=== PATIENT | male | born 1955 | race Caucasian/White ===

== ENCOUNTER 2018-05-23 09:04 | Inpatient (IN) | payer OTHER ==
[~2018-05-23] VITALS: Ht 182.9 cm; Wt 184.1 kg
[~2018-05-23 09:04] MED LIST: HYDROCODON-ACE1 EA15 ORAL; PROTONIX40 M2 GT
[2018-05-23] MEDS ORDERED: BIKTARVY 50-201 EACH PO (15:25)
[2018-05-23] MEDS ORDERED: PROTONIX20 MG ORAL (15:25)
[2018-05-23] MEDS ORDERED: CITALOPRAM HBR40 M1 ORAL (15:25)
[2018-05-23 15:29] LABS: BASOPHILS % (AUTO) 1.3 % (0.0-2.0); EOSINOPHILS % (AUTO) 1.4 % (0.0-3.0); HEMATOCRIT 41.6 % (42.0-52.0); HEMOGLOBIN 13.9 G/DL (14.2-18.0); LYMPHOCYTES % (AUTO) 34.2 % (20.0-45.0); MEAN CORPUSCULAR VOLUME 79 FL (80-99); MONOCYTES % (AUTO) 7.7 % (1.0-10.0); NEUTROPHILS % (AUTO) 55.4 % (45.0-75.0); PLATELET COUNT 199 K/UL (150-450); RED BLOOD COUNT 5.26 M/UL (4.70-6.10); RED CELL DISTRIBUTION WIDTH 13.5 % (11.6-14.8); WHITE BLOOD COUNT 5.2 K/UL (4.8-10.8)
--- NOTE | 2018-05-23 16:17 | History & Physical ---
History and Physical History & Physicial Full H&P dictated #[id number] 62 yo male electively admitted for participation in clinical trial -[id number]. PMH: HIV 2007, started on treatment then, most recently on Biktarvy with excellent virologic control and preserved CD4 numbers Pt had HCV in last year, successfully treated with 8 weeks of Harvoni. Also hx of anxiety/depression, ASCUS and skin cancers s/p removal NKDA PE: HEENT: nc/at Lungs : clear Cor: reg Abd: soft Labs pending A: 1) Participation in clinical trial 2) HIV well controlled 3) cured HCV P: Pt has given informed consent and we will proceed with infusion tomorrow. Samuel Bain MD May 23, 2018 16:17
[2018-05-23 20:00] VITALS: BP 145/75
--- NOTE | 2018-05-23 21:45 | History and Physical Report ---
DATE OF ADMISSION: 05/23/2018 CHIEF COMPLAINT: The patient is electively admitted for participation in [facility] clinical trial [id number]. HISTORY OF PRESENT ILLNESS: The patient is a 62-year-old man, followed by my colleague, Dr. Samuel Hinojosa for HIV infection, which has been well controlled. He is participating in the above-mentioned clinical trial. The protocol requires admission as an inpatient with dosing of the investigational product scheduled for tomorrow morning and then subsequent 2 nights in the hospital for observation in this phase 1B trial. The patient has given informed consent and wishes to participate. The patient is a 62-year-old man who wishes to participate in the above-mentioned clinical trial. He was electively admitted for this. PAST MEDICAL HISTORY: The patient has been infected with HIV for the past 10 years. He was started initially on Tenofovir and Nevirapine, which he took until 2013. He was switched to Triumeq until 2014 and has now been on Biktarvy 1 tablet daily since his viral load is nondetectable. He has had some issues with anxiety and depression. The patient was diagnosed with HIV in 2007 and has been on several different medications most recently Biktarvy. He was diagnosed with hepatitis C in 2015 and was successfully treated with an 8-week course of Harvoni. He has a history of abnormal anal Pap smears and a history of anxiety. PAST SURGICAL HISTORY: The patient had maxillary sinus drainage some years ago. He has had tooth extractions in 2014 and had dental implants the following year. He has had surgeries for skin cancers. FAMILY HISTORY: The patient's father was an alcoholic. There is no history of early cancer or heart disease before age 50 in his first-degree relatives. The patient himself is an alcoholic, but has not had a drink in 30 years. He does not smoke cigarettes or use recreational drugs. There is no recent history of significant travel outside of [place]. MEDICATIONS: The patient is taking Biktarvy 1 tablet daily, Celexa 40 mg once a day, and Protonix 20 mg once a day. ALLERGIES: No known drug allergies. REVIEW OF SYSTEMS: Denies fevers. Denies weight loss. Denies cough. Denies shortness of breath. He has not had chest pain or dyspnea on exertion. Denies nausea, vomiting, or diarrhea. Denies dysuria. Denies paresthesias. PHYSICAL EXAMINATION: GENERAL: Revealed a well-nourished, well-developed male, who is in no acute distress. He is alert and oriented x4 and cooperative. VITAL SIGNS: In the office included a blood pressure of 141/71, heart rate 68, temperature of 98.4, and a weight of 196.2 pounds, and his respiratory rate was 16 per minute. HEENT: Normocephalic, atraumatic. PERRLA. EOMI. The oropharynx was normal. NECK: Supple. LUNGS: Clear to auscultation. HEART: Regular rhythm without murmurs or gallops. ABDOMEN: Soft and nontender. There is no hepatosplenomegaly. NEUROLOGIC: There is no focal neurologic deficit on exam. SKIN: There are no rashes seen on his skin. LABORATORY DATA: Pending. IMPRESSION: 1. Admission for participation in clinical trial. 2. HIV, well controlled. 3. Hepatitis C, cured. 4. ASCUS. 5. History of skin cancer with removal. PLAN: Infuse investigational drug [id number] in the morning per protocol [id number]. The patient wishes to proceed with this clinical trial. Samuel Bain M.D. DR: YADI JOB#: [id number] CC:
[2018-05-24] VITALS: BP 121/68
[2018-05-24 04:00] VITALS: BP 129/78
[2018-05-24] MEDS ORDERED: Investigational Drug 150 MG in NS 48 ML IV ONE (06:30)
[2018-05-24] MEDS ORDERED: CITALOPRAM 40 MG ORAL SCH (09:00)
[2018-05-24] MEDS ORDERED: PANTOPRAZOLE 20 MG ORAL SCH (09:00)
[2018-05-24] MEDS: CITALOPRAM 40 MG ORAL SCH (13:55)
[2018-05-24] MEDS: PANTOPRAZOLE 20 MG ORAL SCH (13:55)
--- NOTE | 2018-05-24 14:59 | General Progress Note ---
Progress Note Progress Note S: doing well, no new complaints. Pt was dosed uneventfully this morning with [id number] vs placebo in [id number] clinical trial. O: VSS Afebrile HEENT: nc/at Lungs: clear Cor: reg Abd: soft n/t Skin: no rashes Labs Test 05/23/18 14:50 White Blood Count 5.2 K/UL (4.8-10.8) Red Blood Count 5.26 M/UL (4.70-6.10) Hemoglobin 13.9 G/DL (14.2-18.0) Hematocrit 41.6 % (42.0-52.0) Mean Corpuscular Volume 79 FL (80-99) Mean Corpuscular Hemoglobin 26.4 PG (27.0-31.0) Mean Corpuscular Hemoglobin Concent 33.5 G/DL (32.0-36.0) Red Cell Distribution Width 13.5 % (11.6-14.8) Platelet Count 199 K/UL (150-450) Mean Platelet Volume 5.9 FL (6.5-10.1) Neutrophils (%) (Auto) 55.4 % (45.0-75.0) Lymphocytes (%) (Auto) 34.2 % (20.0-45.0) Monocytes (%) (Auto) 7.7 % (1.0-10.0) Eosinophils (%) (Auto) 1.4 % (0.0-3.0) Basophils (%) (Auto) 1.3 % (0.0-2.0) A: HIV, well controlled Participation in [id number]; patient doing well. P: continue to monitor per protocol Samuel Bain MD May 24, 2018 14:59
[2018-05-24 16:24] VITALS: BP 127/75
[2018-05-24 20:00] VITALS: BP 137/74
[2018-05-25] VITALS (8 sets, daily range): BP systolic 112–137; BP diastolic 70–84
[2018-05-25 07:13] LABS: BASOPHILS % (AUTO) 1.3 % (0.0-2.0); EOSINOPHILS % (AUTO) 1.8 % (0.0-3.0); HEMATOCRIT 41.9 % (42.0-52.0); HEMOGLOBIN 13.6 G/DL (14.2-18.0); LYMPHOCYTES % (AUTO) 34.7 % (20.0-45.0); MEAN CORPUSCULAR VOLUME 79 FL (80-99); NEUTROPHILS % (AUTO) 53.1 % (45.0-75.0); PLATELET COUNT 175 K/UL (150-450); RED BLOOD COUNT 5.33 M/UL (4.70-6.10); RED CELL DISTRIBUTION WIDTH 13.5 % (11.6-14.8); WHITE BLOOD COUNT 4.5 K/UL (4.8-10.8)
[2018-05-25] MEDS: PANTOPRAZOLE 20 MG ORAL SCH (10:12)
[2018-05-25] MEDS: CITALOPRAM 40 MG ORAL SCH (10:12)
--- NOTE | 2018-05-25 11:56 | General Progress Note ---
Progress Note Progress Note S: doing well, no new complaints O: VSS Afebrile HEENT: nc/at Lungs: clear Cor: reg Abd: soft, NT Neuro: non-focal Labs Test 05/23/18 14:50 05/25/18 06:50 White Blood Count 5.2 K/UL (4.8-10.8) 4.5 K/UL (4.8-10.8) Red Blood Count 5.26 M/UL (4.70-6.10) 5.33 M/UL (4.70-6.10) Hemoglobin 13.9 G/DL (14.2-18.0) 13.6 G/DL (14.2-18.0) Hematocrit 41.6 % (42.0-52.0) 41.9 % (42.0-52.0) Mean Corpuscular Volume 79 FL (80-99) 79 FL (80-99) Mean Corpuscular Hemoglobin 26.4 PG (27.0-31.0) 25.5 PG (27.0-31.0) Mean Corpuscular Hemoglobin Concent 33.5 G/DL (32.0-36.0) 32.4 G/DL (32.0-36.0) Red Cell Distribution Width 13.5 % (11.6-14.8) 13.5 % (11.6-14.8) Platelet Count 199 K/UL (150-450) 175 K/UL (150-450) Mean Platelet Volume 5.9 FL (6.5-10.1) 6.4 FL (6.5-10.1) Neutrophils (%) (Auto) 55.4 % (45.0-75.0) 53.1 % (45.0-75.0) Lymphocytes (%) (Auto) 34.2 % (20.0-45.0) 34.7 % (20.0-45.0) Monocytes (%) (Auto) 7.7 % (1.0-10.0) 9.0 % (1.0-10.0) Eosinophils (%) (Auto) 1.4 % (0.0-3.0) 1.8 % (0.0-3.0) Basophils (%) (Auto) 1.3 % (0.0-2.0) 1.3 % (0.0-2.0) A: HIV infection, well-controlled P: Continue to monitor per [id number] protocol. Anticipate discharge tomorrow 7 AM. Samuel Bain MD May 25, 2018 11:56
[2018-05-25] MEDS ORDERED: Tubing IV Secondary IV ONE (17:01)
[2018-05-26 04:00] VITALS: BP 138/77
[2018-05-26] MEDS: PANTOPRAZOLE 20 MG ORAL SCH (05:41)
[2018-05-26] MEDS: CITALOPRAM 40 MG ORAL SCH (05:42)
[2018-05-26 07:02] LABS: BASOPHILS % (AUTO) 1.3 % (0.0-2.0); EOSINOPHILS % (AUTO) 1.9 % (0.0-3.0); HEMATOCRIT 39.6 % (42.0-52.0); HEMOGLOBIN 13.1 G/DL (14.2-18.0); LYMPHOCYTES % (AUTO) 38.3 % (20.0-45.0); MEAN CORPUSCULAR VOLUME 79 FL (80-99); NEUTROPHILS % (AUTO) 50.6 % (45.0-75.0); PLATELET COUNT 180 K/UL (150-450); RED BLOOD COUNT 5.03 M/UL (4.70-6.10); RED CELL DISTRIBUTION WIDTH 13.6 % (11.6-14.8); WHITE BLOOD COUNT 4.4 K/UL (4.8-10.8)
--- NOTE | 2018-05-26 13:36 | Discharge Summary ---
Discharge Summary Discharge Summary _ Discharge summary dictated #[id number] Pt discharged in stable condition to home with f/u in office next week. Resume home medications. Samuel Bain MD May 26, 2018 13:36
--- NOTE | 2018-05-26 19:45 | Discharge Summary ---
DATE OF ADMISSION: 05/23/2018 DATE OF DISCHARGE: 05/26/2018 DISCHARGE DIAGNOSES: 1. Participation in clinical trial. 2. HIV infection, well controlled. 3. Hepatitis C, cured. 4. ASCUS. 5. History of skin cancers with surgical removal. HISTORY OF PRESENT ILLNESS AND HOSPITAL COURSE: Mr. Gusman is a 62-year-old man followed by my associate, Dr. Hinojosa for HIV infection. He has been well controlled for a number of years with undetectable viral loads and was currently on Biktarvy. He was invited to participate in [employer] clinical trial [id number]. The patient gave informed consent and a steady medication (or placebo) was administered without incident on the second hospital day. His vital signs were followed and were stable. Hematology testing was also stable. The patient tolerated the procedure well. DISCHARGE DISPOSITION: Home with followup in the office next week. DISCHARGE MEDICATIONS: Biktarvy one tablet by mouth daily, Protonix 20 mg once a day, and Celexa 40 mg once a day. Samuel Bain M.D. DR: MOUSTAPHA JOB#: [id number] CC:
== END 2018-05-26 06:50 | disposition home or self-care (01) | DRG 977 ==
LOC: 3E 14:41
DX: B20 Human immunodeficiency virus [HIV] disease (principal); Z00.6 Encounter for examination for normal comparison and control in clinical research program; Z86.19 Personal history of other infectious and parasitic diseases; Z85.828 Personal history of other malignant neoplasm of skin
CPT/HCPCS: 36415; 85025

== ENCOUNTER 2018-06-06 08:33 | Inpatient (IN) | payer OTHER ==
[~2018-06-06] VITALS: Ht 182.9 cm; Wt 85.9 kg
[~2018-06-06 08:33] MED LIST changes: +BIKTARVY 50-201 EACH PO; +CITALOPRAM HBR40 M1 ORAL; +PROTONIX20 MG ORAL
[2018-06-06] MEDS ORDERED: Investigational Drug 150 MG in NS 48 ML IV ONE (10:30)
[2018-06-06 14:45] LABS: BASOPHILS % (AUTO) 0.9 % (0.0-2.0); EOSINOPHILS % (AUTO) 1.5 % (0.0-3.0); HEMATOCRIT 36.8 % (42.0-52.0); LYMPHOCYTES % (AUTO) 31.9 % (20.0-45.0); MEAN CORPUSCULAR VOLUME 81 FL (80-99); NEUTROPHILS % (AUTO) 56.7 % (45.0-75.0); PLATELET COUNT 188 K/UL (150-450); RED BLOOD COUNT 4.57 M/UL (4.70-6.10); RED CELL DISTRIBUTION WIDTH 12.9 % (11.6-14.8); WHITE BLOOD COUNT 5.2 K/UL (4.8-10.8)
--- NOTE | 2018-06-06 15:45 | History and Physical Report ---
DATE OF ADMISSION: 06/06/2018 CHIEF COMPLAINT: The patient is electively admitted for a second dose participation in [employer] clinical trial, [id number]. HISTORY OF PRESENT ILLNESS: The patient is a 62-year-old man with well-controlled HIV infection, followed by Dr. Samuel Hinojosa in my office. He is participating in the above clinical trial. He has been randomized to the multiple dosed cohort. The patient two weeks ago was admitted to [facility] for his first dose (of study drug or placebo). The patient tolerated it well and now returns for his second dose. There have been no interim changes in his physical condition. PAST MEDICAL HISTORY: The patient had HIV infection for at least 10 years. He was started on Tenofovir and Nevirapine, which he took until 2013. He was switched to Triumeq until 2014 and has now been on Biktarvy with some undetectable viral load subsequent to this change. His past medical is also significant for some anxiety and depression, which has been mild. He did have hepatitis C in 2015 and was successfully treated with an eight-week course of Harvoni. There is a history of abnormal Pap smears. PAST SURGICAL HISTORY: The patient had maxillary sinus drainage some years ago, tooth extractions three years ago with dental implants the following years. He has had skin cancer removed. FAMILY HISTORY: The patient's father was an alcoholic. There is no history of early cancer or heart disease in first-degree relatives. SOCIAL HISTORY: The patient is an alcoholic, but has not had a drink in 30 years. He does not use recreational drugs or smoke cigarettes. No recent travel. MEDICATIONS: The patient is taking Biktarvy one tablet a day, Celexa 40 mg once a day, and Protonix 20 mg once a day. ALLERGIES: No known drug allergies. REVIEW OF SYMPTOMS: He denies fever, cough, or shortness of breath. Denies nausea or vomiting. No diarrhea. No dysuria or hematuria. No headaches. PHYSICAL EXAMINATION: Will be performed upon the patient's admission later today. LABORATORY DATA: Pending. IMPRESSION: 1. Human immunodeficiency virus infection, well controlled. 2. Admission for participation in the second dose multi-drug administration cohort of [id number]. 3. Hepatitis C, SVR. 4. Other ASCUS. PLAN: The patient has continued to give consent for participation in the above-mentioned clinical trial. I anticipate that he will be dosed tomorrow (Sunday) morning with discharge on Sunday. Samuel Bain M.D. DR: ALEE JOB#: [id number] CC:
--- NOTE | 2018-06-06 19:43 | History & Physical ---
History and Physical History & Physicial Full H&P dictated #[id number] Pt was examined at 1400. HEENT: nc/at Neck: supple Lungs: clear Cor: reg rhythm, no murmurs or gallops Abd: soft, NT. No hepatosplenomegaly. BS normal Neuro: no focal deficits. Labs Test 06/06/18 14:30 White Blood Count 5.2 K/UL (4.8-10.8) Red Blood Count 4.57 M/UL (4.70-6.10) Hemoglobin 12.0 G/DL (14.2-18.0) Hematocrit 36.8 % (42.0-52.0) Mean Corpuscular Volume 81 FL (80-99) Mean Corpuscular Hemoglobin 26.2 PG (27.0-31.0) Mean Corpuscular Hemoglobin Concent 32.6 G/DL (32.0-36.0) Red Cell Distribution Width 12.9 % (11.6-14.8) Platelet Count 188 K/UL (150-450) Mean Platelet Volume 5.9 FL (6.5-10.1) Neutrophils (%) (Auto) 56.7 % (45.0-75.0) Lymphocytes (%) (Auto) 31.9 % (20.0-45.0) Monocytes (%) (Auto) 9.0 % (1.0-10.0) Eosinophils (%) (Auto) 1.5 % (0.0-3.0) Basophils (%) (Auto) 0.9 % (0.0-2.0) A: Stable HIV infection P: pt will be dosed in AM with 150 mg of IP (or placebo). Samuel Bain MD Jun 06, 2018 19:43
[2018-06-07] MEDS ORDERED: Investigational Drug 150 MG in NS 48 ML IV ONE (06:30)
[2018-06-07] MEDS: BIKTARVY ORAL SCH (10:30)
--- NOTE | 2018-06-07 13:12 | General Progress Note ---
Progress Note Progress Note S: no new complaints O: VSS Afebrile HEENT: nc/at Lungs: clear Cor: reg Abd: soft, NT Ext: no c/c/e A: 1) Participation in [id number]. Pt was infused with 150 mg IP (or placebo) this morning at 0630 without incident. He is doing well. 2) Well-controlled HIV infection 3) HCV-SVR P: continue to monitor per protocol. Anticipate discharge Saturday 06/09. He will have a CBC drawn by clinic staff and run locally by [facility] tomorrow AM and Sunday AM. Samuel Bain MD Jun 07, 2018 13:12
[2018-06-08 00:30] VITALS: BP 129/64
[2018-06-08 07:45] LABS: BASOPHILS % (AUTO) 1.1 % (0.0-2.0); EOSINOPHILS % (AUTO) 2.1 % (0.0-3.0); HEMATOCRIT 40.2 % (42.0-52.0); HEMOGLOBIN 12.5 G/DL (14.2-18.0); LYMPHOCYTES % (AUTO) 35.7 % (20.0-45.0); MEAN CORPUSCULAR VOLUME 82 FL (80-99); MONOCYTES % (AUTO) 8.2 % (1.0-10.0); PLATELET COUNT 184 K/UL (150-450); RED BLOOD COUNT 4.92 M/UL (4.70-6.10); RED CELL DISTRIBUTION WIDTH 13.2 % (11.6-14.8); WHITE BLOOD COUNT 4.2 K/UL (4.8-10.8)
[2018-06-08] MEDS: BIKTARVY ORAL SCH (10:02)
--- NOTE | 2018-06-08 11:56 | General Progress Note ---
Assessment/Plan Status: doing well, ambulating well Assessment/Plan 1) Participation in [id number]. He is doing well. 2) Well-controlled HIV infection 3) HCV-SVR P: continue to monitor per protocol. Anticipate discharge Saturday 06/09. CBC stable Subjective Constitutional: Reports: no symptoms Cardiovascular: Denies: no symptoms, chest pain, edema, irregular heart rate, lightheadedness, palpitations, syncope, other Respiratory: Denies: no symptoms, cough, orthopnea, shortness of breath, SOB with excertion, SOB at rest, sputum, stridor, wheezing, other Gastrointestinal/Abdominal: Denies: no symptoms, abdomen distended, abdominal pain, black stools, tarry stools, blood in stool, constipated, diarrhea, difficulty swallowing, nausea, poor appetite, poor fluid intake, rectal bleeding , vomiting, other Genitourinary: Denies: no symptoms, burning, discharge, frequency, flank pain, hematuria, incontinence, pain, urgency, other Neurologic/Psychiatric: Denies: no symptoms, anxiety, depressed, emotional problems, headache, numbness, paresthesia, pre-existing deficit, seizure, tingling, tremors, weakness, other Allergies: Coded Allergies: No Known Allergies (Unverified , 09/20/14) Objective Last 24 Hour Vital Signs Date Time Temp Pulse Resp B/P (MAP) Pulse Ox O2 Delivery O2 Flow Rate FiO2 06/08/18 08:37 Room Air 06/08/18 00:30 97.4 71 16 129/64 (85) 96 06/07/18 21:22 Room Air 06/07/18 18:08 Room Air Intake and Output 06/07/18 06/08/18 19:00 07:00 Intake Total 360 ml 150 ml Balance 360 ml 150 ml Intake Oral 360 ml 150 ml Laboratory Tests 06/08/18 06:45: White Blood Count 4.2L, Red Blood Count 4.92, Hemoglobin 12.5L, Hematocrit 40.2L , Mean Corpuscular Volume 82, Mean Corpuscular Hemoglobin 25.5L, Mean Corpuscular Hemoglobin Concent 31.2L, Red Cell Distribution Width 13.2, Platelet Count 184, Mean Platelet Volume 6.2L, Neutrophils (%) (Auto) 53.0, Lymphocytes (%) (Auto) 35.7, Monocytes (%) (Auto) 8.2, Eosinophils (%) (Auto) 2.1, Basophils (%) (Auto) 1.1 Height (Feet): 6 Weight (Pounds): 189 General Appearance: WD/WN, no apparent distress Neck: supple Cardiovascular: normal rate Respiratory/Chest: lungs clear Abdomen: non tender, soft, no organomegaly Extremities: non-tender, no calf tenderness Edema: no edema noted Generalized Anderson Ward MD Jun 08, 2018 11:56
[2018-06-08 12:00] VITALS: BP 115/69
[2018-06-09] MEDS ORDERED: D5 1/2NS 1000ml IV ONE (06:49)
[2018-06-09 07:43] LABS: BASOPHILS % (AUTO) 1.5 % (0.0-2.0); EOSINOPHILS % (AUTO) 1.6 % (0.0-3.0); HEMATOCRIT 39.2 % (42.0-52.0); HEMOGLOBIN 12.5 G/DL (14.2-18.0); LYMPHOCYTES % (AUTO) 35.2 % (20.0-45.0); MEAN CORPUSCULAR VOLUME 80 FL (80-99); NEUTROPHILS % (AUTO) 51.7 % (45.0-75.0); PLATELET COUNT 185 K/UL (150-450); RED BLOOD COUNT 4.88 M/UL (4.70-6.10); WHITE BLOOD COUNT 4.5 K/UL (4.8-10.8)
== END 2018-06-09 06:50 | disposition home or self-care (01) | DRG 977 ==
LOC: 3E 14:23
DX: B20 Human immunodeficiency virus [HIV] disease (principal); F41.9 Anxiety disorder, unspecified; F32.9 Major depressive disorder, single episode, unspecified; B18.2 Chronic viral hepatitis C; Z00.6 Encounter for examination for normal comparison and control in clinical research program
CPT/HCPCS: 36415; 85025

== ENCOUNTER 2018-06-20 13:58 | Inpatient (IN) | payer OTHER ==
[~2018-06-20] VITALS: Ht 30.5 cm; Wt 85.3 kg
[2018-06-20 15:20] VITALS: BP 126/83
[2018-06-20 15:35] LABS: BASOPHILS % (AUTO) 1.1 % (0.0-2.0); EOSINOPHILS % (AUTO) 1.6 % (0.0-3.0); HEMATOCRIT 38.3 % (42.0-52.0); LYMPHOCYTES % (AUTO) 33.1 % (20.0-45.0); MEAN CORPUSCULAR VOLUME 82 FL (80-99); NEUTROPHILS % (AUTO) 57.3 % (45.0-75.0); PLATELET COUNT 208 K/UL (150-450); RED CELL DISTRIBUTION WIDTH 13.4 % (11.6-14.8); WHITE BLOOD COUNT 4.7 K/UL (4.8-10.8)
--- NOTE | 2018-06-20 15:47 | History & Physical ---
History and Physical History & Physicial H&P dictated #[id number]. Pt was seen and examined by me at the office at 1430 today, please see dictated note. PE follows below: VSS Afebrile HEENT: nc/at Neck: supple Lungs: clear a/p Cor: reg Abd: soft, NT Ext: no c/c/e He wishes to proceed with tomorrow's (3rd) dosing of IP at 8:00 am. All questions offered were addressed. Samuel Bain MD Jun 20, 2018 15:47
[2018-06-20 16:00] VITALS: BP 121/74
[2018-06-20 20:00] VITALS: BP 143/88
--- NOTE | 2018-06-21 00:42 | History and Physical Report ---
DATE OF ADMISSION: 06/20/2018 CHIEF COMPLAINT: The patient is electively admitted for his third dose participation in [employer] clinical trial, [id number]. HISTORY OF PRESENT ILLNESS: The patient is a 62-year-old man followed by Dr. Samuel Hinojosa. He has well-controlled HIV infection and is continuing to participate in the above-referenced clinical trial. As he has been randomized into the multiple dose cohort, he is now admitted for his third treatment (of study drug or placebo). The patient has tolerated the medication well and has no new complaints. His physical condition is stable. PAST MEDICAL HISTORY: The patient has had HIV infection for at least a decade. He was started on Tenofovir and nevirapine, which he took until 2013 and was switched to Triumeq for a time, but has now been on Biktarvy with undetectable viral load since. He had hepatitis C in 2015, which was cured by an eight-week course of Harvoni. There is a history of anxiety and depression and abnormal rectal Pap smears. PAST SURGICAL HISTORY: The patient has had dental implants, skin cancers removed, and maxillary sinus drainage in the remote past. FAMILY HISTORY: The patient's father was an alcoholic. There is no history of early cancer or heart disease in first-degree relatives. SOCIAL HISTORY: The patient is an alcoholic, but has not had a drink in 30 years. He does not use recreational drugs or smoke. He is very fit and physically active. MEDICATIONS: Include Biktarvy one tablet daily, Celexa 40 mg once a day, and Protonix 20 mg once a day. ALLERGIES: No known drug allergies. REVIEW OF SYSTEMS: Denies fever, cough, or shortness of breath. Denies nausea, vomiting, or diarrhea. Denies dysuria or hematuria. Denies weight loss or headache. PHYSICAL EXAMINATION: Will be performed on the patient's admission later today. LABORATORY DATA: Pending. IMPRESSION: 1. Well-controlled human immunodeficiency virus infection. 2. Hepatitis C, SVR. 3. ASCUS. 4. Continuing for his third dose in the multi-dose administration cohort of [employer] clinical trial, [id number]. PLAN: The patient has continued to give his consent for participation in the above trial. He will be dosed tomorrow morning and I anticipate discharging him on Sunday. Samuel Bain M.D. DR: ALEE JOB#: [id number] CC: ARTIE
[2018-06-21] MEDS ORDERED: Investigational Drug 150 MG in NS 48 ML IV ONE (08:00)
[2018-06-21 09:00] VITALS: BP 118/73
--- NOTE | 2018-06-21 09:09 | General Progress Note ---
Progress Note Progress Note S: patient feels well, tolerated this morning's IP infusion w/o incident. No new complaints. O: VSS. Afebrile HEENT: nc/at Neck: supple Lungs: clear to auscultation Cor: reg rhythm, no murmurs Abd: soft, NT. BS+ Ext: no c/c/e Neuro: non-focal Labs Test 06/20/18 15:15 White Blood Count 4.7 K/UL (4.8-10.8) Red Blood Count 4.70 M/UL (4.70-6.10) Hemoglobin 12.0 G/DL (14.2-18.0) Hematocrit 38.3 % (42.0-52.0) Mean Corpuscular Volume 82 FL (80-99) Mean Corpuscular Hemoglobin 25.6 PG (27.0-31.0) Mean Corpuscular Hemoglobin Concent 31.4 G/DL (32.0-36.0) Red Cell Distribution Width 13.4 % (11.6-14.8) Platelet Count 208 K/UL (150-450) Mean Platelet Volume 5.8 FL (6.5-10.1) Neutrophils (%) (Auto) 57.3 % (45.0-75.0) Lymphocytes (%) (Auto) 33.1 % (20.0-45.0) Monocytes (%) (Auto) 7.0 % (1.0-10.0) Eosinophils (%) (Auto) 1.6 % (0.0-3.0) Basophils (%) (Auto) 1.1 % (0.0-2.0) A: 1) HIV well controlled 2) HCV SVR 3) participation in [id number] continues without AEs P: 1) continue per protocol 2) anticipate discharge Jun 23 Samuel Bain MD Jun 21, 2018 09:09
[2018-06-21] MEDS: BIKTARVY ORAL SCH (12:09)
[2018-06-21 16:00] VITALS: BP_SYST 101; BP_SYST 128; BP_DIAS 65; BP_DIAS 81
[2018-06-21 20:00] VITALS: BP 126/78
[2018-06-22] VITALS: BP 112/61
[2018-06-22 02:00] VITALS: BP 112/61
[2018-06-22 08:00] VITALS: BP 132/74
[2018-06-22] MEDS: BIKTARVY ORAL SCH (08:48)
[2018-06-22 09:17] LABS: BASOPHILS % (AUTO) 0.9 % (0.0-2.0); EOSINOPHILS % (AUTO) 1.7 % (0.0-3.0); HEMATOCRIT 40.2 % (42.0-52.0); HEMOGLOBIN 12.6 G/DL (14.2-18.0); LYMPHOCYTES % (AUTO) 36.2 % (20.0-45.0); MEAN CORPUSCULAR VOLUME 82 FL (80-99); MONOCYTES % (AUTO) 8.2 % (1.0-10.0); PLATELET COUNT 209 K/UL (150-450); RED CELL DISTRIBUTION WIDTH 13.7 % (11.6-14.8); WHITE BLOOD COUNT 4.4 K/UL (4.8-10.8)
--- NOTE | 2018-06-22 11:58 | General Progress Note ---
Progress Note Progress Note S: doing well, no new complaints O: VSS Afebrile HEENT: nc/at Neck supple Lungs: clear Cor: reg rate, no murmur Abd: soft, NT Neuro: non-focal Labs Test 06/20/18 15:15 06/22/18 08:11 White Blood Count 4.7 K/UL (4.8-10.8) 4.4 K/UL (4.8-10.8) Red Blood Count 4.70 M/UL (4.70-6.10) 4.90 M/UL (4.70-6.10) Hemoglobin 12.0 G/DL (14.2-18.0) 12.6 G/DL (14.2-18.0) Hematocrit 38.3 % (42.0-52.0) 40.2 % (42.0-52.0) Mean Corpuscular Volume 82 FL (80-99) 82 FL (80-99) Mean Corpuscular Hemoglobin 25.6 PG (27.0-31.0) 25.7 PG (27.0-31.0) Mean Corpuscular Hemoglobin Concent 31.4 G/DL (32.0-36.0) 31.4 G/DL (32.0-36.0) Red Cell Distribution Width 13.4 % (11.6-14.8) 13.7 % (11.6-14.8) Platelet Count 208 K/UL (150-450) 209 K/UL (150-450) Mean Platelet Volume 5.8 FL (6.5-10.1) 5.7 FL (6.5-10.1) Neutrophils (%) (Auto) 57.3 % (45.0-75.0) 53.0 % (45.0-75.0) Lymphocytes (%) (Auto) 33.1 % (20.0-45.0) 36.2 % (20.0-45.0) Monocytes (%) (Auto) 7.0 % (1.0-10.0) 8.2 % (1.0-10.0) Eosinophils (%) (Auto) 1.6 % (0.0-3.0) 1.7 % (0.0-3.0) Basophils (%) (Auto) 1.1 % (0.0-2.0) 0.9 % (0.0-2.0) A: 1) Participation in [id number], no AEs noted 2) well-controlled HIV infection 3) HCV, SVR P: Continue per protocol; anticipate discharge around 8 am tomorrow. Samuel Bain MD Jun 22, 2018 11:58
[2018-06-22] MEDS ORDERED: NS 275ml ONE (22:36)
[2018-06-22] MEDS ORDERED: Tubing IV Secondary IV ONE (22:36)
[2018-06-23 08:22] LABS: BASOPHILS % (AUTO) 1.2 % (0.0-2.0); HEMATOCRIT 41.4 % (42.0-52.0); HEMOGLOBIN 13.3 G/DL (14.2-18.0); MEAN CORPUSCULAR VOLUME 80 FL (80-99); MONOCYTES % (AUTO) 8.8 % (1.0-10.0); NEUTROPHILS % (AUTO) 52.1 % (45.0-75.0); PLATELET COUNT 212 K/UL (150-450); RED BLOOD COUNT 5.16 M/UL (4.70-6.10); RED CELL DISTRIBUTION WIDTH 13.6 % (11.6-14.8); WHITE BLOOD COUNT 4.2 K/UL (4.8-10.8)
--- NOTE | 2018-06-24 15:00 | Discharge Summary ---
DATE OF ADMISSION: 06/20/2018 DATE OF DISCHARGE: 06/23/2018 DISCHARGE DIAGNOSES: 1. Participation in [employer] protocol, [id number] 2. HIV infection, stable. 3. Hepatitis C infection, SVR. HISTORY OF PRESENT ILLNESS AND HOSPITAL COURSE: The patient was admitted on 06/20/2018 for continuing his participation in the above mentioned clinical trial. This represents his third infusion of investigational product which will either be active drug or placebo. This is a double-blind study. On the second hospital day, the patient had the infusion of the without any trouble and there were no adverse events noted. His physical exam and vital signs and hematology all remained normal throughout the hospital stay. He was discharged to home in good condition on 06/23/2018. He will be followed up in the office in 1 weeks time. Discharge medications included Biktarvy, Celexa, and Protonix. Samuel Bain M.D. DR: Maryam JOB#: [id number] CC: Samuel Bain M.D.; [id number] ; [place] [address],
== END 2018-06-23 08:30 | disposition home or self-care (01) | DRG 977 ==
LOC: 3E 15:01
DX: B20 Human immunodeficiency virus [HIV] disease (principal); Z00.6 Encounter for examination for normal comparison and control in clinical research program; Z86.19 Personal history of other infectious and parasitic diseases; Z85.828 Personal history of other malignant neoplasm of skin; F10.21 Alcohol dependence, in remission
CPT/HCPCS: 36415; 85025

== ENCOUNTER 2018-07-18 15:04 | Inpatient (IN) | payer OTHER ==
[~2018-07-18] VITALS: Ht 182.9 cm; Wt 186.1 kg
--- NOTE | 2018-07-18 15:20 | NUR ---
NURSE NOTES: Patient was admitted from home in stable condition for clinical study. Orientation for the hospital was given. Patient a/o x4. Bed in lowest position and call light within reach. Will continue to monitor.
--- NOTE | 2018-07-18 15:45 | History and Physical Report ---
DATE OF ADMISSION: 07/18/2018 CHIEF COMPLAINT: The patient is again admitted electively for his fifth and final dose participation in [employer] Clinical Trial [id number]. HISTORY OF PRESENT ILLNESS: The patient is a 62-year-old man followed by Dr. Samuel Hinojosa. He has a history of well-controlled HIV infection and has volunteered to participate in the above clinical trial. He has tolerated his previous infusions well without any adverse events being noted. There has been no interval change in his health since his discharge two weeks ago. PAST MEDICAL HISTORY: The patient was infected with HIV around the year 1999. As mentioned in my previous note, he was started on tenofovir and nevirapine, but then was switched to Triumeq and ultimately to Biktarvy for the past two years. His viral load has been undetectable consistently. The patient had a history of hepatitis C, which was cured with 8 weeks of Harvoni. PAST SURGERY HISTORY: The patient has had sinus surgery, various skin cancers removed. He has also had dental implants. FAMILY HISTORY: The patient's father is an alcoholic. There is no history of early cancer or heart disease in close relatives. SOCIAL HISTORY: The patient states he is an alcoholic, but has been sober for 30 years. He does not use recreational drugs. He is fit and physically active. MEDICATIONS: As an outpatient include Biktarvy one tablet daily, Celexa 40 mg once a day, and Protonix 20 mg once a day. ALLERGIES: No known drug allergies. REVIEW OF SYSTEMS: The patient denied fever, cough, shortness of breath. Denies chest pain. Denies nausea, vomiting, or diarrhea. He has not had dysuria or hematuria. Denies headaches or altered mental status. PHYSICAL EXAMINATION: GENERAL: Performed in the office revealed a well-nourished, well-developed male, in no acute distress. He is alert and oriented x4 . VITAL SIGNS: Stable. HEENT: Normocephalic and atraumatic. Pupils equal, round, and reactive. Oropharynx was without thrush. NECK: Supple. No cervical or axillary adenopathy. LUNGS: Clear to auscultation. HEART: Regular rhythm without murmurs or gallops. ABDOMEN: Soft and nontender. No hepatosplenomegaly. EXTREMITIES: Without cyanosis, clubbing, or edema. SKIN: There has been no interval development of any skin rash. IMPRESSION: 1. Participation in [employer] clinical trial [id number]. 2. Hepatitis C, SVR. 3. HIV infection, well controlled. DISCUSSION: The patient is a very pleasant 62-year-old male who is now completing his participation in the above clinical trial. I anticipate he will be dosed tomorrow with a discharge on Sunday morning. The patient was given opportunity to voice questions and he elected to proceed. Samuel Bain M.D. DR: Maryam JOB#: [id number] CC: Samuel Bain M.D.; [address] [place] [address], [address]; [place] [address]; Fax#: [phone] [facility]
[2018-07-18 16:09] LABS: BASOPHILS % (AUTO) 1.2 % (0.0-2.0); EOSINOPHILS % (AUTO) 1.6 % (0.0-3.0); HEMATOCRIT 37.3 % (42.0-52.0); HEMOGLOBIN 12.2 G/DL (14.2-18.0); LYMPHOCYTES % (AUTO) 38.3 % (20.0-45.0); MEAN CORPUSCULAR VOLUME 80 FL (80-99); MONOCYTES % (AUTO) 7.6 % (1.0-10.0); NEUTROPHILS % (AUTO) 51.3 % (45.0-75.0); PLATELET COUNT 239 K/UL (150-450); RED BLOOD COUNT 4.65 M/UL (4.70-6.10); RED CELL DISTRIBUTION WIDTH 13.9 % (11.6-14.8)
--- NOTE | 2018-07-18 16:25 | History & Physical ---
History and Physical History & Physicial Full H&P dictated #[id number] 62 yo male with well-controlled HIV infection electively admitted for participation in [employer] clinical trial [id number]. He feels well. HEENT: nc/at Lungs: clear Cor: reg Abd: soft, NT Extr: no c/c/e A: 1) clinical trial participant 2) HIV, well controlled 3) GERD 4) h/o depression 5) HCV, SVR P: 1) Pt wishes to continue clinical trial. He will have his last dose (of 5) tomorrow morning at 8 am. Pt again was offered opportunity to raise questions but he says he has none at this time. We will anticipate discharge on Jul 21. Samuel Bain MD Jul 18, 2018 16:25
--- NOTE | 2018-07-18 19:40 | NUR ---
NURSE NOTES: Received report from TAWANA Patel.
--- NOTE | 2018-07-18 19:45 | NUR ---
HAND-OFF: Report given to TAWANA Zamorano.
--- NOTE | 2018-07-18 21:37 | NUR ---
NURSE NOTES: Patient is in bed, aaox4. No signs of distress. Needs attended to, bed low, call light within reach.
[2018-07-19] MEDS ORDERED: [UNRECOGNIZED DRUG - REMARK] IV ONE ×2 (06:30)
--- NOTE | 2018-07-19 07:49 | NUR ---
NURSE NOTES: 2 New IVs started @ 0700 , left forearm special gauge, and right forearm 29 Gauge. Patient tolerated well.
--- NOTE | 2018-07-19 07:50 | NUR ---
NURSE NOTES: Received report from TAWANA Zamorano. Rounding done and patient a/ox4 and denies any pain at this time. Clinical staff stays with the patient for starting infusion. Bed in lowest position and call light within reach. Will continue to monitor.
--- NOTE | 2018-07-19 07:52 | NUR ---
HAND-OFF: Report given to TAWANA Patel. Patient stable.
--- NOTE | 2018-07-19 12:23 | NUR ---
PHILOSOPHY SPECIALIST NOTES [facility] ADMITTED FOR CLINICAL TRIAL, PHILOSOPHY SPECIALIST TO BE AVAILABLE NEEDED.
--- NOTE | 2018-07-19 14:41 | General Progress Note ---
Progress Note Progress Note S: No new complaints. Pt had infusion of IP (vs placebo) this morning with no adverse events. O: VSS Afebrile HEENT: nc/at Lungs: clear a/ Cor: reg Abd: soft, nt Ext: no c/c/e Labs Test 07/18/18 15:26 White Blood Count 5.0 K/UL (4.8-10.8) Red Blood Count 4.65 M/UL (4.70-6.10) Hemoglobin 12.2 G/DL (14.2-18.0) Hematocrit 37.3 % (42.0-52.0) Mean Corpuscular Volume 80 FL (80-99) Mean Corpuscular Hemoglobin 26.1 PG (27.0-31.0) Mean Corpuscular Hemoglobin Concent 32.6 G/DL (32.0-36.0) Red Cell Distribution Width 13.9 % (11.6-14.8) Platelet Count 239 K/UL (150-450) Mean Platelet Volume 5.5 FL (6.5-10.1) Neutrophils (%) (Auto) 51.3 % (45.0-75.0) Lymphocytes (%) (Auto) 38.3 % (20.0-45.0) Monocytes (%) (Auto) 7.6 % (1.0-10.0) Eosinophils (%) (Auto) 1.6 % (0.0-3.0) Basophils (%) (Auto) 1.2 % (0.0-2.0) A: 1) participation in [id number] 2) HIV well-controlled 3) Hep C, SVR P: 1) continue to manage per protocol. Will have local CBC tomorrow morning, and anticipate discharge 07/21. Samuel Bain MD Jul 19, 2018 14:41
--- NOTE | 2018-07-19 19:18 | NUR ---
HAND-OFF: Report given to MARGA Hunt.
[2018-07-19 20:00] VITALS: BP 132/75
--- NOTE | 2018-07-19 20:00 | NUR ---
NURSE NOTES patient received from PREMA HDZ R.N. Patient in bed A/A/OX4. 19:18 pm . Patient denies any pain at this time . no sob/ no n/v noted RFA g#20 patent andm intact . patient vss. afebrile and weight taken by clinical staff. at 20:00pm. call light within reach . bed in low position at all times . will continue to monitor.
[2018-07-20 02:00] VITALS: BP 111/61
--- NOTE | 2018-07-20 07:20 | NUR ---
HAND-OFF: Report given to Tika YeungPatient in stable conditions and Clinical staff states he's coming at 0800 am.for lab works .
--- NOTE | 2018-07-20 07:30 | NUR ---
NURSE NOTES: Received report from Marilee GRESHAM. On rounds patient is awake alert and oriented x4, ambulating. No s/s acute distress noted. No reports of adverse reactions to clinical trial drug reported by mold shifter nurse. Awaiting clinical trial staff to draw CBC. Side rails upx2, bed low and locked, call light in reach. Will continue to monitor.
[2018-07-20 08:00] VITALS: BP 128/78
[2018-07-20 08:31] LABS: BASOPHILS % (AUTO) 1.1 % (0.0-2.0); EOSINOPHILS % (AUTO) 1.5 % (0.0-3.0); HEMATOCRIT 40.3 % (42.0-52.0); HEMOGLOBIN 12.6 G/DL (14.2-18.0); LYMPHOCYTES % (AUTO) 40.7 % (20.0-45.0); MEAN CORPUSCULAR VOLUME 80 FL (80-99); NEUTROPHILS % (AUTO) 47.8 % (45.0-75.0); PLATELET COUNT 229 K/UL (150-450); RED BLOOD COUNT 5.03 M/UL (4.70-6.10); RED CELL DISTRIBUTION WIDTH 14.1 % (11.6-14.8); WHITE BLOOD COUNT 3.8 K/UL (4.8-10.8)
--- NOTE | 2018-07-20 10:35 | General Progress Note ---
Progress Note Progress Note S: Pt feels well, no new complaints O: VSS Afebrile PE unchanged from yesterday. Labs Test 07/18/18 15:26 07/20/18 08:16 White Blood Count 5.0 K/UL (4.8-10.8) 3.8 K/UL (4.8-10.8) Red Blood Count 4.65 M/UL (4.70-6.10) 5.03 M/UL (4.70-6.10) Hemoglobin 12.2 G/DL (14.2-18.0) 12.6 G/DL (14.2-18.0) Hematocrit 37.3 % (42.0-52.0) 40.3 % (42.0-52.0) Mean Corpuscular Volume 80 FL (80-99) 80 FL (80-99) Mean Corpuscular Hemoglobin 26.1 PG (27.0-31.0) 25.1 PG (27.0-31.0) Mean Corpuscular Hemoglobin Concent 32.6 G/DL (32.0-36.0) 31.3 G/DL (32.0-36.0) Red Cell Distribution Width 13.9 % (11.6-14.8) 14.1 % (11.6-14.8) Platelet Count 239 K/UL (150-450) 229 K/UL (150-450) Mean Platelet Volume 5.5 FL (6.5-10.1) 5.9 FL (6.5-10.1) Neutrophils (%) (Auto) 51.3 % (45.0-75.0) 47.8 % (45.0-75.0) Lymphocytes (%) (Auto) 38.3 % (20.0-45.0) 40.7 % (20.0-45.0) Monocytes (%) (Auto) 7.6 % (1.0-10.0) 9.0 % (1.0-10.0) Eosinophils (%) (Auto) 1.6 % (0.0-3.0) 1.5 % (0.0-3.0) Basophils (%) (Auto) 1.2 % (0.0-2.0) 1.1 % (0.0-2.0) A: 1) Participation in [id number] 2) HIV, well controlled 3) HCV, SVR P: 1) Anticipate discharge tomorrow morning 2) check CBC in AM 3) pt has follow-up visit scheduled for next in clinic Samuel Bain MD Jul 20, 2018 10:35
[2018-07-20 12:00] VITALS: BP 116/66
--- NOTE | 2018-07-20 19:31 | NUR ---
HAND-OFF: Report given to Lona GILLIAM. Patient in stable condition.
--- NOTE | 2018-07-20 21:42 | NUR ---
NURSE NOTES: Patient in bed, aaox4. No signs of distress, bed low, call light within reach.
--- NOTE | 2018-07-21 07:36 | NUR ---
HAND-OFF: Report given to TAWANA Benjamin. Patient stable.
--- NOTE | 2018-07-21 07:47 | NUR ---
NURSE NOTES: AWAKE/ALERT. NO C/O PAIN. IN NO DISTRESS.
[2018-07-21 08:59] LABS: BASOPHILS % (AUTO) 1.7 % (0.0-2.0); EOSINOPHILS % (AUTO) 2.3 % (0.0-3.0); HEMATOCRIT 37.8 % (42.0-52.0); HEMOGLOBIN 12.2 G/DL (14.2-18.0); LYMPHOCYTES % (AUTO) 40.6 % (20.0-45.0); MEAN CORPUSCULAR VOLUME 79 FL (80-99); MONOCYTES % (AUTO) 8.5 % (1.0-10.0); NEUTROPHILS % (AUTO) 46.9 % (45.0-75.0); PLATELET COUNT 220 K/UL (150-450); RED BLOOD COUNT 4.78 M/UL (4.70-6.10); RED CELL DISTRIBUTION WIDTH 13.9 % (11.6-14.8); WHITE BLOOD COUNT 3.7 K/UL (4.8-10.8)
--- NOTE | 2018-07-21 09:04 | NUR ---
NURSE NOTES: discharged home in stable condition. dc instuctions given.
--- NOTE | 2018-07-22 15:00 | Discharge Summary ---
DATE OF ADMISSION: 07/18/2018 DATE OF DISCHARGE: 07/21/2018 DISCHARGE DIAGNOSES: 1. Participation in [employer] clinical trial [id number]. 2. HIV infection, well controlled. 3. Hepatitis C, SVR. 4. Alcoholism. 5. Gastroesophageal reflux. 6. Depression. 7. History of removals of skin cancers. HISTORY OF PRESENT ILLNESS/HOSPITAL COURSE: The patient was electively admitted on 07/18/2018 for participation in the above clinical trial. He received the investigational product (active agent versus placebo) on the morning of 07/19/2018 without incident. He tolerated the infusion well and was observed for the next 2 nights in the hospital. His vital signs remained normal. His platelet count was in the mid 200 thousands and no other significant laboratory abnormalities were noted. The patient was discharged in good condition to home with follow up in the office next week. DISCHARGE MEDICATIONS: Include Biktarvy 1 tablet daily, Celexa 40 mg once a day, and Protonix 20 mg once a day. Samuel Bain M.D. DR: YADI JOB#: [id number] CC: ARTIE
== END 2018-07-21 08:30 | disposition home or self-care (01) | DRG 951 ==
LOC: 3E 15:04
DX: Z00.6 Encounter for examination for normal comparison and control in clinical research program (principal); B20 Human immunodeficiency virus [HIV] disease; K21.9 Gastro-esophageal reflux disease without esophagitis; F32.9 Major depressive disorder, single episode, unspecified; F10.21 Alcohol dependence, in remission; Z85.828 Personal history of other malignant neoplasm of skin; Z86.19 Personal history of other infectious and parasitic diseases
CPT/HCPCS: 36415; 85025